=== PATIENT | male | born 1955 | race Caucasian/White ===

== ENCOUNTER 2024-05-25 08:49 | Outpatient (AMB) | payer MEDICARE, SELFPAY ==
--- NOTE | 2024-05-25 08:54 | MHC.OFFVIS ---
Intake Visit Reasons: Erectile dysfunction/possible circumcision consult Intake Note: Patient is present for ERECTILE DYSFUNCTION/POSSIBLE CIRCUMCISION CONSULT Urology Medication:NONE Antibiotic Allergy:NONE Blood Thinner:NONE Icer Air Conditioning Required: No Allergies No Known Allergies Allergy (Verified 07/25/24 15:17) HPI Comments Details: Jose Antonio is a pleasant male. He is a patient of Dr. Olayinka kline. He seen for the following urologic conditions - erectile dysfunction - balanitis/phimosis Balanitis phimosis Present on examination Discussed conservative therapy Would prefer to continue with medication Betamethasone provided Erectile dysfunction Previously used on demand medications Has no previously use daily tadalafil Prescription provided Review of Systems Const Denies chills and Denies fever(s) Card Reports no additional complaints and Denies syncope Resp Denies cough GI Denies abdominal pain and Denies heartburn Reports as per HPI and Denies change in libido Neuro Denies syncope Psych Denies change in libido Endo Denies change in libido Physical Exam Const General: cooperative, healthy appearing, comfortable and no acute distress Orientation/consciousness: patient oriented x3 HEENT Face and sinus: Yes normal facial exam Mouth: moist mucous membranes Neck Neck: Yes normal visual inspection, Yes full ROM and Yes trachea midline Chest Chest palpation & inspection: normal inspection of the chest Resp Effort & Inspection: normal respiratory effort, able to speak in complete sentences and no respiratory distress GI Inspection: Yes normal to inspection Back/Spine/Pelvis Cervical Spine: normal cervical lordosis Thoracic/Lumbar Spine: thoracic and lumbar spine normal to inspection Skin General skin exam: no rashes or lesions noted Neuro General: patient oriented x3, gait normal, tone normal and moves all extremities Extrem General: Yes normal to inspection and Yes capillary refill normal Assessment & Plan Assessment & Plan (1) Phimosis of penis: Code(s): N47.1 - Phimosis Category: Medical (2) Erectile dysfunction: Code(s): N52.9 - Male erectile dysfunction, unspecified Category: Medical Plan Betamethasone provided Daily tadalafil Medications: New betamethasone dipropionate 0.05% Thin coat 2 times per day 1 appl topical BID 15 grams 0RF N47.1 - Phimosis, Q55.69 - Other congenital malformation of penis tadalafil 5 mg PO DAILY 30 tabs 1RF sexual activity 30 days N52.9 - Male erectile dysfunction, unspecified Patient Instructions: Imaging studies, laboratory and physical exam results were discussed and reviewed in detail. No major barriers to patient understanding were identified. An opportunity to ask questions regarding the treatment plan was provided. All questions were answered. The patient expressed understanding and agreement with the above treatment plan. The patient is aware they should contact our office by phone for worsening of their current condition or the appearance of new urologic symptoms. Compliance is encouraged with any medications and followup testing that is ordered. It is a privilege to participate in the urologic care of your patient. If you have any questions or concerns regarding treatment for the above conditions, or other urologic issues, please do not hesitate to contact me. The office telephone contact is [phone]. This note is constructed using voice recognition software. While every effort has been made to ensure accuracy underground miner errors may have been included. Yours sincerely, Dr Florentin Benton MD, [facility] - Urology Providers of Expert, Compassionate Care for the Genitourinary System Coding Level of Care Code New Pt Level 4 (99813) Diagnoses Phimosis of penis N47.1 Erectile dysfunction N52.9
== END 2024-05-25 09:45 | disposition home or self-care (01) ==
PROVIDERS: PCP Internal Medicine; Visit Provider Urology
DX: N47.1 Phimosis (principal); N52.9 Male erectile dysfunction, unspecified
CPT/HCPCS: 99204

== ENCOUNTER → 2024-05-25 08:49 | Outpatient (BNVA) | payer MEDICARE, SELFPAY | PROVIDERS: PCP Internal Medicine; Visit Provider Urology | DX: N52.9 Male erectile dysfunction, unspecified (principal); N48.1 Balanitis; N47.1 Phimosis | CPT/HCPCS: 99202 ==

== ENCOUNTER 2024-07-25 14:48 | Outpatient (AMB) | payer MEDICARE, SELFPAY ==
--- NOTE | 2024-07-25 15:15 | MHC.OFFVIS ---
Intake Visit Reasons: 2m follow up Intake Note: Patient is Present for Follow Up Phimosis,Erectile Dys Urology Medication:Tadalafil Antibiotic Allergies:None Blood Thinners: None Reproduction Production Manager Required: No Accompanied by: Self / Same As Patient Allergies No Known Allergies Allergy (Verified 07/25/24 15:17) HPI Comments Details: Jose Antonio is a pleasant male. He is a patient of Dr. Olayinka kline. He seen for the following urologic conditions - erectile dysfunction - balanitis/phimosis Good response to combination therapy Follow-up next year Balanitis phimosis Present on examination Discussed conservative therapy Would prefer to continue with medication Betamethasone provided Erectile dysfunction Previously used on demand medications Has no previously use daily tadalafil Prescription provided Review of Systems Const Denies chills and Denies fever(s) Card Reports no additional complaints and Denies syncope Resp Denies cough GI Denies abdominal pain and Denies heartburn Reports as per HPI and Denies change in libido Neuro Denies syncope Psych Denies change in libido Endo Denies change in libido Physical Exam Const General: cooperative, healthy appearing, comfortable and no acute distress Orientation/consciousness: patient oriented x3 HEENT Face and sinus: Yes normal facial exam Mouth: moist mucous membranes Neck Neck: Yes normal visual inspection, Yes full ROM and Yes trachea midline Chest Chest palpation & inspection: normal inspection of the chest Resp Effort & Inspection: normal respiratory effort, able to speak in complete sentences and no respiratory distress GI Inspection: Yes normal to inspection Back/Spine/Pelvis Cervical Spine: normal cervical lordosis Thoracic/Lumbar Spine: thoracic and lumbar spine normal to inspection Skin General skin exam: no rashes or lesions noted Neuro General: patient oriented x3, gait normal, tone normal and moves all extremities Extrem General: Yes normal to inspection and Yes capillary refill normal Assessment & Plan Assessment & Plan (1) Erectile dysfunction: Code(s): N52.9 - Male erectile dysfunction, unspecified Category: Medical (2) Phimosis of penis: Code(s): N47.1 - Phimosis Category: Medical Plan Continue daily tadalafil Patient Instructions: Imaging studies, laboratory and physical exam results were discussed and reviewed in detail. No major barriers to patient understanding were identified. An opportunity to ask questions regarding the treatment plan was provided. All questions were answered. The patient expressed understanding and agreement with the above treatment plan. The patient is aware they should contact our office by phone for worsening of their current condition or the appearance of new urologic symptoms. Compliance is encouraged with any medications and followup testing that is ordered. It is a privilege to participate in the urologic care of your patient. If you have any questions or concerns regarding treatment for the above conditions, or other urologic issues, please do not hesitate to contact me. The office telephone contact is [phone]. This note is constructed using voice recognition software. While every effort has been made to ensure accuracy tax compliance manager errors may have been included. Yours sincerely, Dr Florentin Benton MD, [facility] - Urology Providers of Expert, Compassionate Care for the Genitourinary System Coding Level of Care Code Est Pt Level 3 (92669) Diagnoses Erectile dysfunction N52.9 Phimosis of penis N47.1
== END 2024-07-25 15:39 | disposition home or self-care (01) ==
PROVIDERS: PCP Internal Medicine; Visit Provider Urology
DX: N52.9 Male erectile dysfunction, unspecified (principal); N47.1 Phimosis
CPT/HCPCS: 99213

== ENCOUNTER → 2024-07-25 14:48 | Outpatient (BNVA) | payer MEDICARE, SELFPAY | PROVIDERS: PCP Internal Medicine; Visit Provider Urology | DX: N52.9 Male erectile dysfunction, unspecified (principal); N47.1 Phimosis | CPT/HCPCS: 99212 ==